=== PATIENT | female | born 1990 | race Hispanic/Latino ===

== ENCOUNTER 2025-09-26 18:25 | Day surgery (SDC) | payer OTHER, SELFPAY ==
[2025-09-26 18:50] VITALS: BMI 29.2
[2025-09-26] MEDS ORDERED: hydrALAZINE 20 MG/ML VIAL SLOW IVP PRN (19:17)
[2025-09-26 21:26] LABS: Glucose, Urine (Dipstick) Normal (Negative); Leukocyte Negative (Negative); Protein, Urine (Dipstick) Negative (Neg-Trace); Specific Gravity, Urine 1.010 (1.005-1.030)
[2025-09-26 21:41] LABS: Bacteria/HPF None Seen HPF (None Seen); CAUTI Indications for Culture Pregnancy; RBC/HPF None Seen HPF (0-3); WBC/HPF None Seen HPF (0-3)
[2025-09-26 21:43] LABS: Urine Culture Reflex Yes Yes
== END 2025-09-27 01:13 | disposition home or self-care (01) ==
LOC: CSHLD/OP 18:25
PROVIDERS: ATTEND Family Medicine
DX: O47.1 False labor at or after 37 completed weeks of gestation (principal); O09.523 Supervision of elderly multigravida, third trimester; O36.63X0 Maternal care for excessive fetal growth, third trimester, not applicable or unspecified; Z67.40 Type O blood, Rh positive; Z3A.38 38 weeks gestation of pregnancy; Z79.899 Other long term (current) drug therapy
CPT/HCPCS: 76819; 81001; 87086; 87480; 87510; 87660; 99284

== ENCOUNTER 2025-09-28 05:25 | Inpatient (IN) | payer MEDICAID, OTHER ==
[2025-09-28] MEDS ORDERED: Tranexamic Acid 1,000 MG/10 ML VIAL IVP PRN (06:03)
[2025-09-28] MEDS ORDERED: hydrALAZINE 20 MG/ML VIAL SLOW IVP PRN ×2 (06:03→14:12)
[2025-09-28] MEDS ORDERED: Carboprost 250 MCG/ML AMP IM PRN (06:03)
[2025-09-28] MEDS ORDERED: Methylergonovine 0.2 MG/ML VIAL IM PRN ×2 (06:03→14:12)
[2025-09-28] MEDS ORDERED: Lidocaine 1% (PF) 30 ML VIAL SC PRN (06:03)
[2025-09-28] MEDS ORDERED: Diphenoxylate HCl/Atropine Tablet PO PRN (06:03)
[2025-09-28] MEDS ORDERED: Ondansetron PF 4 MG/2 ML Vial IVP PRN ×3 (06:03→14:12)
[2025-09-28] MEDS ORDERED: Oxytocin 30 units/NS 500 ML 500 ML IV SCH ×2 (06:15→14:12)
[2025-09-28 06:17] LABS: Hematocrit 34.7 % (34.9-44.5); Hemoglobin 11.5 g/dL (12.0-15.5); Mean Corpuscular Hemoglobin 26.9 pg (27.0-33.0); Mean Corpuscular Volume 81.1 fL (81.6-98.3); Platelet Count 207 10x3/uL (150-450); Red Blood Cell (RBC) Count 4.28 10x6/uL (3.90-5.03); White Blood Cell (WBC) Count 8.30 10x3/uL (3.5-10.5)
[2025-09-28 06:48] LABS: Hep B Surf Ag - L&D Non-Reactive S/CO (NonReactive)
[2025-09-28 06:50] LABS: Syphilis Antibody Index 0.06 S/CO (<1.00 Non-Reactive)
[2025-09-28] MEDS: fentaNYL/Ropivacaine Epidural 100 ML ONE (07:03)
[2025-09-28 07:08] VITALS: BMI 29.2
[2025-09-28] MEDS ORDERED: diphenhydrAMINE 50 MG/ML VIAL IVP PRN (07:09)
[2025-09-28] MEDS ORDERED: Acetaminophen 325 MG TAB PO PRN (07:09)
[2025-09-28] MEDS ORDERED: fentaNYL 2 mcg/Ropivacaine 0.2% Epidural 100 ML CADD EPIDURAL SCH (07:15)
[2025-09-28] MEDS ORDERED: Communication Order-Pharmacy FS SCH (07:15)
[2025-09-28] MEDS ORDERED: Preparation H Ointment 28 GM TUBE PR PRN (14:12)
[2025-09-28] MEDS ORDERED: Benzocaine-Menthol 82.5 ML CAN TOP PRN (14:12)
[2025-09-28] MEDS ORDERED: Bisacodyl 10 MG SUPP PR PRN (14:12)
[2025-09-28] MEDS ORDERED: Milk Of Magnesia 30 ML UDCUP PO PRN (14:12)
[2025-09-28] MEDS ORDERED: diphenhydrAMINE 25 MG CAP PO PRN (14:12)
[2025-09-28] MEDS ORDERED: Lanolin Ointment 7 GM TUBE TOP PRN (14:12)
[2025-09-28] MEDS: Ibuprofen 800 MG TAB PO SCH (15:43)
[2025-09-28] MEDS: Ferrous Sulfate 325 MG TAB PO SCH (17:17)
[2025-09-29 08:26] VITALS: TEMP 98.2
[2025-09-29 12:09] VITALS: BP 107/65
== END 2025-09-29 14:18 | disposition home or self-care (01) | DRG 807 ==
LOC: CSHLD/OP 05:25 → CSHLD 06:34 → CSHPED 13:55
PROVIDERS: ADMIT Family Medicine; ATTEND Family Medicine
PROC: 10E0XZZ Delivery of Products of Conception, External Approach (ICD-10-PCS; principal; 2025-09-28)
PROC: 0KQM0ZZ Repair Perineum Muscle, Open Approach (ICD-10-PCS; 2025-09-28)
PROC: 10907ZC Drainage of Amniotic Fluid, Therapeutic from Products of Conception, Via Natural or Artificial Opening (ICD-10-PCS; 2025-09-28)
PROC: 4A1HXCZ Monitoring of Products of Conception, Cardiac Rate, External Approach (ICD-10-PCS; 2025-09-28)
PROC: 10H07YZ Insertion of Other Device into Products of Conception, Via Natural or Artificial Opening (ICD-10-PCS; 2025-09-28)
DX: O70.1 Second degree perineal laceration during delivery (principal); Z37.0 Single live birth; Z3A.38 38 weeks gestation of pregnancy; O77.0 Labor and delivery complicated by meconium in amniotic fluid
CPT/HCPCS: 51702; 85027; 86780; 86850; 86900; 86901; 87340; 99285